=== PATIENT | male | born 1995 | race Caucasian/White ===

== ENCOUNTER 2018-07-18 08:44 | Emergency (ER) | payer OTHER, SELFPAY ==
[2018-07-18 08:48] VITALS: BP 139/78; PULSE 72; RESP 15; TEMP 36.8; O2SAT 99
--- NOTE | 2018-07-18 09:03 | W.ED.GENAD ---
Discharge Plan Disposition Patient Disposition: HOME Condition: Stable Discharge Details Chief Complaint: EarProblem Clinical Impression: Otitis media of right ear Primary Care Provider: Zandra Brandt ED Provider: Jaci Matias Home Meds and New Rx's Prescriptions: New amoxicillin 500 mg tablet 500 mg PO TID 10 Days Qty: 30 RF: 0 Continued sertraline 50 mg tablet 50 mg PO DAILY Qty: 45 RF: 0 trazodone 50 mg tablet See Patient Comments PO QHS PRNRF: 0 melatonin 3 mg tablet 6 mg PO HS PRNRF: 0 Discharge Instructions Instructions: Otitis Media (ED) Additional Instructions: Drink plenty fluids and get plenty of rest. Alternate Tylenol and Motrin as needed and directed for pain. Take the antibiotics until finished. Follow-up with your primary care doctor in 1 week for reevaluation. Return immediately to the emergency department with any worsening or new concerning symptoms. Discharge Data Discharge Physician: Jaci Matias Medical Decision Making 22-year-old male who presents with right ear pain and sore throat since 4 AM this morning. Sore throat now improving, mainly complaining of right-sided ear pain. Vitals within normal limits. Afebrile. Patient appears nontoxic. His right TM is erythematous, dull with serous fluid noted within canal. Oropharynx normal to inspection. No lymphadenopathy. No submandibular swelling, no trismus, no drooling. Lungs clear to auscultation. Rapid strep negative. Discussed with patient that this may be viral, and to alternate Tylenol and Motrin as needed and directed for pain. We will also send home with a prescription for antibiotics to start if he has no improvement with Tylenol Motrin over the next 1-2 days. Patient states he would rather start the antibiotics today. He is instructed to follow-up with primary care doctor for reevaluation within the next few days and return here at any time if worse. HPI General Mode of arrival: ambulatory. Date/Time Provider Initiated Documentation: 07/18/18 08:50. Limitations to Documentation: no limitations. Information obtained by: patient. HPI Narrative: Patient is a 22-year-old male who presents the ED with complaint of right ear pain that awoke him from sleep since 4 AM this morning. Patient also said he had some mild sore throat at that time, but states the sore throat is better and now he mainly is only complaining of ear pain. He admits to some body aches and fatigue last night but states this is improved at present. He admits to mild right-sided headache near area of ear pain. He last took Tylenol at 730 this morning. He denies any known fever cough. Related Data Home Medications Medication Instructions Recorded Confirmed melatonin 3 mg tablet 6 mg PO HS PRN tab 06/09/18 06/10/18 trazodone 50 mg tablet See Rx Instructions PO QHS PRN tab 06/09/18 06/10/18 sertraline 50 mg tablet 50 mg PO DAILY #45 tab-cap 06/10/18 06/10/18 amoxicillin 500 mg PO TID 10 Days #30 tab 07/18/18 Previous Rx's Medication Instructions Recorded sertraline 50 mg tablet 50 mg PO DAILY #45 tab-cap 06/10/18 amoxicillin 500 mg PO TID 10 Days #30 tab 07/18/18 Allergies Allergy/AdvReac Type Severity Reaction Status Date / Time No Known Drug Allergies Allergy Unverified 06/10/18 09:23 venlafaxine AdvReac Severe Suicidal Verified 06/10/18 10:11 ideation General Stated Complaint: EarProblem MOJGAN: 4 Review of Systems Review of Systems All systems reviewed & are unremarkable except as noted in HPI and below Constitutional Reports as per HPI, Denies chills and Denies fever(s) Eyes Denies blurry vision ENT Denies dizziness, Reports otalgia, Reports sore throat and Denies throat swelling Cardiovascular Denies chest pain and Denies dyspnea Respiratory Denies cough and Denies dyspnea Gastrointestinal Denies abdominal pain, Denies diarrhea and Denies vomiting Genitourinary Denies hematuria and Denies dysuria Musculoskeletal Denies back pain and Denies numbness Integumentary/Breasts Denies lesions and Denies rash Neurologic Denies dizziness, Denies focal weakness and Denies numbness Allergic/Immunologic Denies throat swelling [facility] Medical History Alcohol use disorder (Chronic) Anxiety disorder (Chronic 07/30/12) Recurrent major depression (Chronic 07/30/12) Tobacco use disorder (Chronic 09/08/16) Surgical History History of surgery on wrist (Acute) Social History Smoking/Tobacco Use Status: Current every day Tobacco Type: cigarettes Alcohol Intake: former Drug use: Never Substance use type: does not use Household members: significant other and children Number of Children: 1 current occupation: Cook Pets and animals: Yes Pets and animals: dog(s) Sexually active: Yes Current gender identity: male Seatbelt use: always Helmet use: Yes 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 Do you feel safe at home: Yes Do you feel safe in your relationship?: Yes Exam Const General: cooperative and healthy appearing Orientation: alert and awake HENMT Head: normal to inspection Ears: hearing grossly normal bilaterally, external ears normal and TM abnormal wth effusion serous on the right and erythematous on the right General nose exam: external nose normal Face and sinus: normal facial exam and sinuses nontender Mouth: oral mucosae normal Teeth and gingiva: dentition normal Throat: posterior oropharynx normal, uvula midline and no peritonsillar masses Eyes General: appearance normal, both eyes and all related structures Eyelids: eyelids normal EOM: EOM intact bilaterally Neck Neck: normal visual inspection Lymphatic: no lymphadenopathy noted Chest Chest: normal inspection of the chest Resp Effort & Inspection: normal respiratory effort and able to speak in complete sentences Auscultation: clear to auscultation bilaterally Cardio Rate: regular rate Rhythm: regular rhythm Skin General skin exam: no rashes or lesions noted Neuro General: alert and awake Cognition: normal cognition Speech: speech normal Gait: normal gait Motor: muscle tone normal throughout Sensory Exam: no sensory deficits noted Extrem General: normal to inspection and full ROM Psych Appearance: grossly normal Mental Status: mental status grossly normal Speech and Movement: speech and movement normal Affect: normal affect Thought Process: normal Course Vital Signs Temperature 98.2 F 07/18/18 08:48 Pulse 72 07/18/18 08:48 Respiratory Rate 15 07/18/18 08:48 Blood Pressure 139/78 07/18/18 08:48 Pulse Oximetry 99 07/18/18 08:48 Temperature 98.2 F 07/18/18 08:48 Temperature Source Temporal Artery Scan 07/18/18 08:48 Pulse 72 07/18/18 08:48 Respiratory Rate 15 07/18/18 08:48 Respiratory Effort Non-Labored 07/18/18 08:52 Blood Pressure 139/78 07/18/18 08:48 Blood Pressure Position Sitting 07/18/18 08:48 Pulse Oximetry 99 07/18/18 08:48 Oxygen Delivery Method Room Air 07/18/18 08:48 Oxygen Flow Rate 0 07/18/18 08:48 Pain Level 8 07/18/18 08:58 Lab/Test Results Lab/Test Results: POC Strep Test-CAIT(Rapid) Start: 07/18/18 08:57 Freq: .Rapid Strep Test Status: Active Protocol: Document 07/18/18 09:03 SGL (Rec: 07/18/18 09:03 [facility] [id number] Strep test-CAIT(Rapid)-POC POC-Strep test-CAIT (Rapid) Negative POC-Strep test-CAIT (Rapid) Negative
--- NOTE | 2018-07-18 09:08 | ED.GENADUL_ITS ---
Discharge Plan Disposition Patient Disposition: HOME Condition: Stable Discharge Details Chief Complaint: EarProblem Clinical Impression: Otitis media of right ear Primary Care Provider: Zandra Brandt ED Provider: Jaci Matias Home Meds and New Rx's Prescriptions: New amoxicillin 500 mg tablet 500 mg PO TID 10 Days Qty: 30 RF: 0 Continued sertraline 50 mg tablet 50 mg PO DAILY Qty: 45 RF: 0 trazodone 50 mg tablet See Patient Comments PO QHS PRNRF: 0 melatonin 3 mg tablet 6 mg PO HS PRNRF: 0 Discharge Instructions Instructions: Otitis Media (ED) Additional Instructions: Drink plenty fluids and get plenty of rest. Alternate Tylenol and Motrin as needed and directed for pain. Take the antibiotics until finished. Follow-up with your primary care doctor in 1 week for reevaluation. Return immediately to the emergency department with any worsening or new concerning symptoms. Discharge Data Discharge Physician: Jaci Matias Medical Decision Making 22-year-old male who presents with right ear pain and sore throat since 4 AM this morning. Sore throat now improving, mainly complaining of right-sided ear pain. Vitals within normal limits. Afebrile. Patient appears nontoxic. His right TM is erythematous, dull with serous fluid noted within canal. Oropharynx normal to inspection. No lymphadenopathy. No submandibular swelling, no trismus, no drooling. Lungs clear to auscultation. Rapid strep negative. Discussed with patient that this may be viral, and to alternate Tylenol and Motrin as needed and directed for pain. We will also send home with a prescription for antibiotics to start if he has no improvement with Tylenol Motrin over the next 1-2 days. Patient states he would rather start the antibiotics today. He is instructed to follow-up with primary care doctor for reevaluation within the next few days and return here at any time if worse. HPI General Mode of arrival: ambulatory . Date/Time Provider Initiated Documentation: 07/18/18 08:50 . Limitations to Documentation: no limitations . Information obtained by: patient . HPI Narrative: Patient is a 22-year-old male who presents the ED with complaint of right ear pain that awoke him from sleep since 4 AM this morning. Patient also said he had some mild sore throat at that time, but states the sore throat is better and now he mainly is only complaining of ear pain. He admits to some body aches and fatigue last night but states this is improved at present. He admits to mild right-sided headache near area of ear pain. He last took Tylenol at 730 this morning. He denies any known fever cough. Related Data Home Medications Medication Instructions Recorded Confirmed melatonin 3 mg tablet 6 mg PO HS PRN tab 06/09/18 06/10/18 trazodone 50 mg tablet See Rx Instructions PO QHS PRN tab 06/09/18 06/10/18 sertraline 50 mg tablet 50 mg PO DAILY #45 tab-cap 06/10/18 06/10/18 amoxicillin 500 mg PO TID 10 Days #30 tab 07/18/18 Previous Rx's Medication Instructions Recorded sertraline 50 mg tablet 50 mg PO DAILY #45 tab-cap 06/10/18 amoxicillin 500 mg PO TID 10 Days #30 tab 07/18/18 Allergies Allergy/AdvReac Type Severity Reaction Status Date / Time No Known Drug Allergies Allergy Unverified 06/10/18 09:23 venlafaxine AdvReac Severe Suicidal Verified 06/10/18 10:11 ideation General Stated Complaint: EarProblem MOJGAN: 4 Review of Systems Review of Systems All systems reviewed & are unremarkable except as noted in HPI and below Constitutional Reports as per HPI, Denies chills and Denies fever(s) Eyes Denies blurry vision ENT Denies dizziness, Reports otalgia, Reports sore throat and Denies throat swelling Cardiovascular Denies chest pain and Denies dyspnea Respiratory Denies cough and Denies dyspnea Gastrointestinal Denies abdominal pain, Denies diarrhea and Denies vomiting Genitourinary Denies hematuria and Denies dysuria Musculoskeletal Denies back pain and Denies numbness Integumentary/Breasts Denies lesions and Denies rash Neurologic Denies dizziness, Denies focal weakness and Denies numbness Allergic/Immunologic Denies throat swelling [facility] Medical History Alcohol use disorder (Chronic) Anxiety disorder (Chronic 07/30/12) Recurrent major depression (Chronic 07/30/12) Tobacco use disorder (Chronic 09/08/16) Surgical History History of surgery on wrist (Acute) Social History Smoking/Tobacco Use Status: Current every day Tobacco Type: cigarettes Alcohol Intake: former Drug use: Never Substance use type: does not use Household members: significant other and children Number of Children: 1 current occupation: Cook Pets and animals: Yes Pets and animals: dog(s) Sexually active: Yes Current gender identity: male Seatbelt use: always Helmet use: Yes 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 Do you feel safe at home: Yes Do you feel safe in your relationship?: Yes Exam Const General: cooperative and healthy appearing Orientation: alert and awake HENMT Head: normal to inspection Ears: hearing grossly normal bilaterally, external ears normal and TM abnormal wth effusion serous on the right and erythematous on the right General nose exam: external nose normal Face and sinus: normal facial exam and sinuses nontender Mouth: oral mucosae normal Teeth and gingiva: dentition normal Throat: posterior oropharynx normal, uvula midline and no peritonsillar masses Eyes General: appearance normal, both eyes and all related structures Eyelids: eyelids normal EOM: EOM intact bilaterally Neck Neck: normal visual inspection Lymphatic: no lymphadenopathy noted Chest Chest: normal inspection of the chest Resp Effort & Inspection: normal respiratory effort and able to speak in complete sentences Auscultation: clear to auscultation bilaterally Cardio Rate: regular rate Rhythm: regular rhythm Skin General skin exam: no rashes or lesions noted Neuro General: alert and awake Cognition: normal cognition Speech: speech normal Gait: normal gait Motor: muscle tone normal throughout Sensory Exam: no sensory deficits noted Extrem General: normal to inspection and full ROM Psych Appearance: grossly normal Mental Status: mental status grossly normal Speech and Movement: speech and movement normal Affect: normal affect Thought Process: normal Course Vital Signs Temperature 98.2 F 07/18/18 08:48 Pulse 72 07/18/18 08:48 Respiratory Rate 15 07/18/18 08:48 Blood Pressure 139/78 07/18/18 08:48 Pulse Oximetry 99 07/18/18 08:48 Temperature 98.2 F 07/18/18 08:48 Temperature Source Temporal Artery Scan 07/18/18 08:48 Pulse 72 07/18/18 08:48 Respiratory Rate 15 07/18/18 08:48 Respiratory Effort Non-Labored 07/18/18 08:52 Blood Pressure 139/78 07/18/18 08:48 Blood Pressure Position Sitting 07/18/18 08:48 Pulse Oximetry 99 07/18/18 08:48 Oxygen Delivery Method Room Air 07/18/18 08:48 Oxygen Flow Rate 0 07/18/18 08:48 Pain Level 8 07/18/18 08:58 Lab/Test Results Lab/Test Results: POC Strep Test-CAIT(Rapid) Start: 07/18/18 08:57 Freq: .Rapid Strep Test Status: Active Protocol: Document 07/18/18 09:03 SGL (Rec: 07/18/18 09:03 [facility] [place] [id number]) Strep test-CAIT(Rapid)-POC POC-Strep test-CAIT (Rapid) Negative POC-Strep test-CAIT (Rapid) Negative
== END 2018-07-18 09:16 | disposition home or self-care (01) ==
PROVIDERS: Emergency Provider Physician Assistant; PCP Family Medicine
DX: H66.91 Otitis media, unspecified, right ear (principal)
CPT/HCPCS: 87880; 99283; 87081

== ENCOUNTER 2018-08-30 08:52 | Emergency (ER) | payer OTHER, SELFPAY ==
--- NOTE | 2018-08-30 08:58 | NUR.NOTE ---
Thursday night the PT fell off his longboard wile riding in the dark. in the process pt rolled/landed on his right ankle pt has kyle able to ambulate on it and has been experiencing 4/10 pain. pt is current that it is broken minimal spelling
[2018-08-30 09:00] VITALS: BP 151/82; PULSE 70; RESP 16; TEMP 36.6; O2SAT 99
--- NOTE | 2018-08-30 09:32 | DI.RAD_ITS ---
SYMPTOM/DIAGNOSIS: S/P TWISTING INJURY, PAIN, ? ACUTE FX RIGHT ANKLE AND RIGHT FOOT: Three views of the ankle and three views of the foot were obtained. The ankle mortise appears well maintained. No evidence of fracture involving the foot or ankle.
--- NOTE | 2018-08-30 09:45 | W.ED.GENAD ---
Discharge Plan Disposition Patient Disposition: HOME Condition: Good Discharge Details Chief Complaint: Orthopedic Clinical Impression: Right foot sprain Primary Care Provider: Zandra Brandt ED Provider: Ricardo Fisher Meds and New Rx's Prescriptions: Continued hydroxyzine HCl 25 mg tablet 25 - 50 mg PO QID PRN (Reason: anxiety) Qty: 60 RF: 0 Discharge Instructions Instructions: Foot Sprain (ED) Additional Instructions: X-rays do not show any fracture. Please use ice on and off for pain and swelling. May take acetaminophen or ibuprofen for pain. Follow-up with primary care in 1 to 2 weeks if not better. Return to ED if any problems. Referrals: Zandra Brandt, GRETA [Primary Care Provider] - Medical Decision Making X-rays of the right ankle and foot were obtained from triage. Per my review and radiology read these are negative for fracture. Patient does not want crutches or anything. He just wanted to make sure there was no fracture. He is discharged home follow-up with primary care in 1 to 2 weeks if not better. HPI General Mode of arrival: ambulatory. Date/Time Provider Initiated Documentation: 08/30/18 09:17. Limitations to Documentation: no limitations. Information obtained by: patient. HPI Narrative: Patient presents with right foot and ankle pain after falling Thursday. He has had trouble ambulating. Most of his pain is right foot laterally. Denies other injury. Here just to make sure he did not break anything. Related Data Home Medications Medication Instructions Recorded Confirmed hydroxyzine HCl 25 mg tablet 25 - 50 mg PO QID PRN #60 tab-cap 08/20/18 08/30/18 Previous Rx's Medication Instructions Recorded hydroxyzine HCl 25 mg tablet 25 - 50 mg PO QID PRN #60 tab-cap 08/20/18 Allergies Allergy/AdvReac Type Severity Reaction Status Date / Time venlafaxine AdvReac Severe Suicidal Verified 08/30/18 09:02 ideation General Stated Complaint: Orthopedic MOJGAN: 4 Review of Systems Musculoskeletal Denies back pain and Denies numbness Comments: Foot pain Integumentary/Breasts Denies wounds Neurologic Denies numbness and Denies paresthesias [facility] [place] Medical History Alcohol use disorder (Chronic) Anxiety disorder (Chronic 07/30/12) Recurrent major depression (Chronic 07/30/12) Tobacco use disorder (Chronic 09/08/16) Surgical History History of surgery on wrist (Acute) Social History Smoking/Tobacco Use Status: Current every day Tobacco Type: cigarettes Alcohol Intake: current Alcohol Intake frequency: a few times a month Drug use: Never Substance use type: does not use Caregiver/Support person: No Household members: significant other and children Number of Children: 1 Communication Needs: None current occupation: Cook Pets and animals: Yes Pets and animals: dog(s) Sexually active: Yes Current gender identity: male Seatbelt use: always Helmet use: Yes 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 Normal range of motion. Right foot with bruising and tenderness dorsally over fourth and fifth metatarsal region. Good pulses, sensation, movement. Course Vital Signs Temperature 97.9 F 08/30/18 09:00 Pulse 70 08/30/18 09:00 Respiratory Rate 16 08/30/18 09:00 Blood Pressure 151/82 H 08/30/18 09:00 Pulse Oximetry 99 08/30/18 09:00 Temperature 97.9 F 08/30/18 09:00 Temperature Source Skin 08/30/18 09:00 Pulse 70 08/30/18 09:00 Respiratory Rate 16 08/30/18 09:00 Respiratory Effort 08/30/18 09:02 Blood Pressure 151/82 H 08/30/18 09:00 Blood Pressure Position Sitting 08/30/18 09:00 Pulse Oximetry 99 08/30/18 09:00 Oxygen Delivery Method Room Air 08/30/18 09:00 Oxygen Flow Rate 0 08/30/18 09:00 Pain Level 4 08/30/18 09:00
[2018-08-30 10:06] VITALS: BP 151/82; PULSE 70; RESP 16; TEMP 36.6; O2SAT 99
== END 2018-08-30 10:39 | disposition home or self-care (01) ==
PROVIDERS: Emergency Provider Emergency Medicine; PCP Nurse Practitioner Family
DX: S93.401A Sprain of unspecified ligament of right ankle, initial encounter (principal); W01.0XXA Fall on same level from slipping, tripping and stumbling without subsequent striking against object, initial encounter
CPT/HCPCS: 99284; 73610; 73630; 99282

== ENCOUNTER 2019-11-15 11:48 | Outpatient (REF) | payer MEDICAID, SELFPAY ==
[2019-11-15 19:24] LABS: HGB 16.4 g/dL (13.5-17.5); Mean Corp. HGB Concentration 32.8 g/dL (32.0-36.0); Mean Corpuscular Hemoglobin 29.2 pg (27.0-33.0); Mean Corpuscular Volume 89.1 fL (80-95); Platelet Count 339 x1000/uL (130-400); RBC 5.61 m/cumm (4.50-6.00); White Blood Cell Count 6.93 k/cumm (4.4-10.8)
[2019-11-15 19:45] LABS: ALT 42 U/L (16-63); AST 28 U/L (15-37); Albumin 4.4 g/dL (3.4-5.0); Alkaline Phosphatase 111 U/L (46-116); Anion Gap 6.7 mmol/L (3-11); BUN 11 mg/dL (7-18); Bilirubin, Total 1.1 mg/dL (0.2-1.0); CO2 29.3 mmol/L (21.0-32.0); CREATININE 0.96 mg/dL (0.70-1.30); Calcium 9.9 mg/dL (8.5-10.1); Chloride 102 mmol/L (98-107); Glucose 103 mg/dL (74-106); Potassium 4.6 mmol/L (3.5-5.1); Sodium 138 mmol/L (136-145); TSH (W/Ref FT4) 1.07 uIU/mL (0.36-3.74); Total Protein 7.7 g/dL (6.4-8.2)
[2019-11-17 13:19] LABS: Hepatitis C Ab w Rflx HCV PCR Negative (Negative)
[2019-11-17 14:15] LABS: HIV-1/2 Ag & Ab Screen Negative (Negative)
== END 2019-11-15 12:08 ==
LOC: NCHCN 11:48
PROVIDERS: Visit Provider Family Medicine
DX: Z13.9 Encounter for screening, unspecified (principal); F10.20 Alcohol dependence, uncomplicated; F41.1 Generalized anxiety disorder
CPT/HCPCS: 80053; 85027; 86803; 87389; 84443

== ENCOUNTER 2021-06-19 16:30 | Outpatient (REF) | payer MEDICAID, SELFPAY ==
[2021-06-19 19:19] LABS: HCT 45.9 % (40.0-50.0); HGB 14.7 g/dL (13.5-17.5); MCH 29.4 pg (27.0-33.0); MCV 91.8 fL (80-95); MPV 10.4 fL (8.0-11.0); Platelet Count 334 10^3/uL (130-400); RDW 13.4 % (11.8-14.1); RDW-SD 45.5 fL; WBC 6.06 10^3/uL (4.4-10.8)
[2021-06-19 20:21] LABS: ALT 34 U/L (16-63); AST 22 U/L (15-37); Albumin 4.4 g/dL (3.4-5.0); Alkaline Phosphatase 98 U/L (46-116); Anion Gap 7.9 mmol/L (3-11); BUN 15 mg/dL (7-18); Bilirubin, Total 0.7 mg/dL (0.2-1.0); CO2 28.1 mmol/L (21.0-32.0); CREATININE 0.9 mg/dL (0.70-1.30); Calcium 9.1 mg/dL (8.5-10.1); Chloride 102 mmol/L (98-107); Folate 10.7 ng/mL (8.6-20.0); Glucose 76 mg/dL (74-106); Potassium 4.4 mmol/L (3.5-5.1); Sodium 138 mmol/L (136-145); Total Protein 7.5 g/dL (6.4-8.2); Vitamin B12 399 pg/mL (193-986)
== END 2021-06-19 16:31 | disposition home or self-care (01) ==
LOC: NCHCN 16:30
PROVIDERS: Visit Provider Family Medicine
DX: F10.20 Alcohol dependence, uncomplicated (principal)
CPT/HCPCS: 80053; 85027; 82607; 82746

== ENCOUNTER 2021-07-11 17:25 | Outpatient (REF) | payer MEDICAID, SELFPAY ==
[2021-07-13 11:54] LABS: COVID-19 RT-PCR UVMMC Result Negative (Negative)
== END 2021-07-11 17:26 | disposition home or self-care (01) ==
LOC: LBN 17:25
PROVIDERS: Visit Provider Physician Assistant Medical
DX: Z20.822 Contact with and (suspected) exposure to COVID-19 (principal); J06.9 Acute upper respiratory infection, unspecified
CPT/HCPCS: U0003

== ENCOUNTER 2022-06-29 13:09 | Emergency (ER) | payer MEDICAID, SELFPAY ==
[2022-06-29 13:13] VITALS: BP 141/77; PULSE 80; RESP 18; TEMP 36.6; O2SAT 98
[2022-06-29 13:53] LABS: Abs Immature Grans 0.05 10^3/uL (0.0-0.06); Absolute Basophil Count 0.05 10^3/uL (0.0-0.2); Absolute Eosinophil Count 0.24 10^3/uL (0.0-0.7); Absolute Lymphocyte Count 0.81 10^3/uL (1.2-3.4); Absolute Monocyte Count 0.69 10^3/uL (0.1-0.8); Absolute Neutrophil Count 5.53 10^3/uL (1.2-6.7); Basophils % 0.7; Eosinophils % 3.3; HCT 45.2 % (40.0-50.0); HGB 14.8 g/dL (13.5-17.5); Immature Grans % 0.7; MCH 28.5 pg (27.0-33.0); MCHC 32.7 % (32.0-36.0); MCV 87 fL (80-95); MPV 10.5 fL (8.0-11.0); Monocytes % 9.4; Neutrophils % 74.9; Platelet Count 263 10^3/uL (130-400); RDW-SD 44.9 fL; WBC 7.37 10^3/uL (4.4-10.8)
[2022-06-29] MEDS: Normal Saline 1,000 ML 1000 ML IV (13:58)
[2022-06-29] MEDS: Ketorolac 30 MG/ML VIAL IVP (13:59)
[2022-06-29 14:07] LABS: Bilirubin Negative (Negative); Blood Trace-intact (Negative); Clarity Clear (Clear); Glucose Negative (Negative); Ketones Negative (Negative); Leukocyte Esterase Negative (Negative); Nitrite Negative (Negative); Specific Gravity >= 1.030 (1.005-1.025); Urobilinogen 0.2 mg/dL (Up to 0.2)
[2022-06-29 14:08] LABS: ALT 32 U/L (16-63); AST 24 U/L (15-37); Albumin 4.6 g/dL (3.4-5.0); Alkaline Phosphatase 134 U/L (46-116); Anion Gap 8.8 mmol/L (3-11); BUN 19 mg/dL (7-18); Bilirubin, Total 0.5 mg/dL (0.2-1.0); CO2 28.2 mmol/L (21.0-32.0); CREATININE 0.9 mg/dL (0.70-1.30); Calcium 9.4 mg/dL (8.5-10.1); Chloride 105 mmol/L (98-107); Estimated GFR 119.31 (mL/min/1.73m2); Glucose 85 mg/dL (74-106); Magnesium 1.7 mg/dL (1.8-2.4); Potassium 4.4 mmol/L (3.5-5.1); Sodium 142 mmol/L (136-145); Total Protein 7.8 g/dL (6.4-8.2)
[2022-06-29 14:14] LABS: Bacteria Negative HPF (Negative); Epithelial Cells Rare HPF (Negative); RBC 0-2 HPF (0-2); WBC 0-2 HPF (0-5)
[2022-06-29 14:15] LABS: C & S Indicated? No; Casts Negative LPF (Negative); Crystals Rare Calcium Oxalate HPF (Negative); Mucus Negative (Negative)
[2022-06-29 14:56] LABS: C Diff PCR Negative (Negative)
--- NOTE | 2022-06-29 15:16 | ED.GENADUL_ITS ---
Discharge Plan Disposition Patient Disposition: Home Condition: Stable Discharge Details Clinical Impression: Acute diarrhea Primary Care Provider: Sang Gonzalez ED Provider: Brennon Salter Home Meds and New Rx's Prescriptions: Continued hydroxyzine HCl 25 mg tablet 25 - 50 mg PO QID PRN (Reason: anxiety) Qty: 60 0RF sertraline 100 mg tablet 100 mg PO DAILY Discontinued azithromycin 500 mg tablet 1,000 mg PO ONCE Qty: 2 0RF Discharge Instructions Instructions: Acute Diarrhea (ED) Additional Instructions: We will call you with any positive results at this time I do feel you can be safely discharged to follow-up with your primary care provider if not improving in the next 5 days. You may use [id number] Imodium as directed on packaging please only take as directed as there may be adverse effects to this medications if taken outside of directions. If you develop any new or significant worsening of symptoms such as severe fever, blood in your diarrhea, mucus, or worsening belly pain return to the emergency department for reassessment Also on today's labs it was noted that your magnesium was slightly low. We did not give you any magnesium given that this can cause worsening diarrhea but please eat magnesium rich foods as tolerated. Stand Alone Forms: Work Release Referrals: Sang Gonzalez [Primary Care Provider] - 5 days (If not improving) Medical Decision Making Patient presenting to the emergency department for chief complaint of acute diarrhea. Patient states watery profuse diarrhea for the past 3 days. Patient denies any fever chills, blood or mucus, severe abdominal pain. Patient denies any recent travel outside the country, drinking un- filtered stream water, or other sick contacts within his family or home. Physical exam is unremarkable shows no abdominal tenderness but does reveal some hyperactive bowel sounds. Given profuse diarrhea we will check patient's labs for potential electrolyte abnormalities and obtain stool specimen if possible. Pending results we will give patient IV fluids Review of patient's labs show an overall unremarkable nondiagnostic CBC, CMP shows slightly elevated BUN, slightly elevated alk phos otherwise unremarkable CMP. Magnesium is slightly low at 1.7 but will have patient increase magnesium rich foods given that I feel oral magnesium will just further cause more diarrhea. Urinalysis does show high specific gravity and trace blood otherwise no signs of infection. We were able to obtain stool specimen and patient is negative for C. difficile although the stool results are send out and are pending. Patient reassessed and stated slight continued headache after fluids so we will give some IV Toradol. Otherwise I do feel that patient is able to be safely discharged to follow-up with primary care provider if not improving or return for any significant worsening of symptoms. At this time given watery nature with no mucus no fever no chills I do not feel that patient requires antibiotics. Did discussed with him use of [id number] Imodium and to take only as directed on packaging. He was agreeable to this and stated understanding of discharge instructions. After discussion of diagnosis and plan of care patient has no further needs, questions, or concerns and states clear understanding to return to the emergency department for any worsening symptoms. This documentation was generated using [employer] dictation system, please disregard any oddities of phrase or misspellings. Lab Data Lab results reviewed: Yes I reviewed the patient's lab results. HPI General Mode of arrival: ambulatory . Date/Time Provider Initiated Documentation: 06/29/22 13:17 . Limitations to Documentation: no limitations . Information obtained by: RN notes reviewed . History of Present Illness 26 year old M presents to the emergency department with the chief complaint of Diarrhea, described as mild, with intensity rated at 1. Quality is described as aching, and is localized to the abdomen. Patient started experiencing this day(s) (3) and it has been constant. No relieving factors improve symptom(s), No exacerbating factors reported . Patient notes no other symptoms.. Patient did receive the following treatments prior to arrival, other (Pepto-Bismol) Related Data Home Medications Medication Instructions Recorded Confirmed hydroxyzine HCl 25 mg tablet 25 - 50 mg PO QID PRN anxiety #60 08/20/18 06/29/22 tab-caps sertraline 100 mg tablet 100 mg PO DAILY 06/29/22 06/29/22 Previous Rx's Medication Instructions Recorded hydroxyzine HCl 25 mg tablet 25 - 50 mg PO QID PRN anxiety #60 08/20/18 tab-caps Allergies Allergy/AdvReac Type Severity Reaction Status Date / Time venlafaxine AdvReac Severe Suicidal Verified 06/29/22 13:17 ideation General Stated Complaint: Nausea/Vomit/Diar MOJGAN: 3 Review of Systems Constitutional Constitutional: Denies chills, Denies fever(s), Reports headache(s), Denies malaise and Denies poor appetite ENT Ears, Nose, Mouth, and Throat: Reports headache(s) Cardiovascular Cardiovascular: Denies chest pain and Denies dyspnea Respiratory Respiratory: Denies cough and Denies dyspnea Gastrointestinal Gastrointestinal: Reports as per HPI, Reports abdominal pain, Denies melena, Denies change in bowel habits, Denies constipation, Reports diarrhea, Denies nausea and Denies vomiting Genitourinary Genitourinary: Reports system reviewed and no additional complaints, except as documented and Denies difficulty urinating Integumentary/Breasts Skin/Breast: Denies rash Neurologic Neurologic: Reports headache(s) PFSH All Active Problems Acute diarrhea (Acute) Alcohol use disorder (Chronic) [facility] 05/17-06/06/2018 Anxiety disorder (Chronic 07/30/12) With panic attacks; citalopram and bupropion made things worse; venlafaxine caused suicidal ideation Recurrent major depression (Chronic 07/30/12) Tobacco use disorder (Chronic 09/08/16) Surgical History History of surgery on wrist Family History Mother No problems noted. Father Alcohol abuse Sister No problems noted. Brother No problems noted. Brother No problems noted. 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 Do you feel safe at home: Yes Do you feel safe in your relationship?: Yes Exam Const General: cooperative Orientation: alert, awake and oriented x3 Resp Effort & Inspection: normal respiratory effort and able to speak in complete sentences Auscultation: clear to auscultation bilaterally Cardio Rate: regular rate Rhythm: regular rhythm Heart Sounds: S1 normal and S2 normal GI Palpation: soft, no hepatosplenomegaly, not firm, no guarding, no masses, no pulsatile masses, not rigid, no splenomegaly and nontender Auscultation: normal bowel sounds and hyperactive bowel sounds Back/Spine/Pelvis Back: no CVA tenderness Neuro General: patient alert, patient awake, patient oriented x3, gait normal and moves all extremities Course Vital Signs Vital signs: Vital Signs Temperature 36.6 C 06/29/22 13:13 Pulse 80 06/29/22 13:13 Respiratory Rate 18 06/29/22 13:13 Blood Pressure 141/77 H 06/29/22 13:13 Pulse Oximetry 98 06/29/22 13:13 Temperature 36.6 C 06/29/22 13:13 Temperature Source Tympanic 06/29/22 13:13 Pulse 80 06/29/22 13:13 Respiratory Rate 18 06/29/22 13:13 Respiratory Effort Normal, Non-Labored 06/29/22 13:15 Blood Pressure 141/77 H 06/29/22 13:13 Pulse Oximetry 98 06/29/22 13:13 Oxygen Delivery Method Room Air 06/29/22 13:13 Oxygen Flow Rate 0 06/29/22 13:13 Lab/Test Results Lab/Test Results: Laboratory Tests Range/Units 06/29/22 06/29/22 06/29/22 13:44 13:44 13:50 WBC (4.4-10.8) 10^3/uL 7.37 RBC (4.36-5.78) 10^6/uL 5.20 Hgb (13.5-17.5) g/dL 14.8 Hct (40.0-50.0) % 45.2 MCV (80-95) fL 87 MCH (27.0-33.0) pg 28.5 MCHC (32.0-36.0) % 32.7 RDW (11.8-14.1) % 14.0 Plt Count (130-400) 10^3/uL 263 MPV (8.0-11.0) fL 10.5 Immature Gran % 0.7 Neutrophils % 74.9 Lymphocytes % 11.0 Monocytes % 9.4 Eosinophils % 3.3 Basophils % 0.7 Nucleated RBC % (0.0-0.3) % 0.0 Absolute Neutrophils (1.2-6.7) 10^3/uL 5.53 Absolute Lymphocytes (1.2-3.4) 10^3/uL 0.81 L Absolute Monocytes (0.1-0.8) 10^3/uL 0.69 Absolute Eosinophils (0.0-0.7) 10^3/uL 0.24 Absolute Basophils (0.0-0.2) 10^3/uL 0.05 Sodium (136-145) mmol/L 142 Potassium (3.5-5.1) mmol/L 4.4 Chloride (98-107) mmol/L 105 Carbon Dioxide (21.0-32.0) mmol/L 28.2 Anion Gap (3-11) mmol/L 8.8 BUN (7-18) mg/dL 19 H Creatinine (0.70-1.30) mg/dL 0.9 Est GFR (CKD-EPI 2020) (mL/min/1.73m2) 119.31 Glucose (74-106) mg/dL 85 Calcium (8.5-10.1) mg/dL 9.4 Magnesium (1.8-2.4) mg/dL 1.7 L Total Bilirubin (0.2-1.0) mg/dL 0.5 AST (15-37) U/L 24 ALT (16-63) U/L 32 Alkaline Phosphatase (46-116) U/L 134 H Total Protein (6.4-8.2) g/dL 7.8 Albumin (3.4-5.0) g/dL 4.6 Urine Color (Yellow) Yellow Urine Clarity (Clear) Clear Urine pH (5-8) 6.0 Ur Specific [place] (1.005-1.025) >= 1.030 H Urine Protein (Negative) mg/dL Negative Urine Ketones (Negative) mg/dL Negative Urine Blood (Negative) Trace-intact H Urine Nitrite (Negative) Negative Urine Bilirubin (Negative) Negative Urine Urobilinogen (Up to 0.2) mg/dL 0.2 Ur Leukocyte Esterase (Negative) Negative Urine RBC (0-2) HPF 0-2 Urine WBC (0-5) HPF 0-2 Ur Epithelial Cells (Negative) HPF Rare Urine Crystals (Negative) HPF Rare Calcium Oxalate Urine Bacteria (Negative) HPF Negative Urine Casts (Negative) LPF Negative Urine Mucus (Negative) Negative Ur Culture Indicated? No Urine Glucose (Negative) mg/dL Negative Stl C.difficile Tox PCR (Negative) Range/Units 06/29/22 13:57 WBC (4.4-10.8) 10^3/uL RBC (4.36-5.78) 10^6/uL Hgb (13.5-17.5) g/dL Hct (40.0-50.0) % MCV (80-95) fL MCH (27.0-33.0) pg MCHC (32.0-36.0) % RDW (11.8-14.1) % Plt Count (130-400) 10^3/uL MPV (8.0-11.0) fL Immature Gran % Neutrophils % Lymphocytes % Monocytes % Eosinophils % Basophils % Nucleated RBC % (0.0-0.3) % Absolute Neutrophils (1.2-6.7) 10^3/uL Absolute Lymphocytes (1.2-3.4) 10^3/uL Absolute Monocytes (0.1-0.8) 10^3/uL Absolute Eosinophils (0.0-0.7) 10^3/uL Absolute Basophils (0.0-0.2) 10^3/uL Sodium (136-145) mmol/L Potassium (3.5-5.1) mmol/L Chloride (98-107) mmol/L Carbon Dioxide (21.0-32.0) mmol/L Anion Gap (3-11) mmol/L BUN (7-18) mg/dL Creatinine (0.70-1.30) mg/dL Est GFR (CKD-EPI 2020) (mL/min/1.73m2) Glucose (74-106) mg/dL Calcium (8.5-10.1) mg/dL Magnesium (1.8-2.4) mg/dL Total Bilirubin (0.2-1.0) mg/dL AST (15-37) U/L ALT (16-63) U/L Alkaline Phosphatase (46-116) U/L Total Protein (6.4-8.2) g/dL Albumin (3.4-5.0) g/dL Urine Color (Yellow) Urine Clarity (Clear) Urine pH (5-8) Ur Specific [place] (1.005-1.025) Urine Protein (Negative) mg/dL Urine Ketones (Negative) mg/dL Urine Blood (Negative) Urine Nitrite (Negative) Urine Bilirubin (Negative) Urine Urobilinogen (Up to 0.2) mg/dL Ur Leukocyte Esterase (Negative) Urine RBC (0-2) HPF Urine WBC (0-5) HPF Ur Epithelial Cells (Negative) HPF Urine Crystals (Negative) HPF Urine Bacteria (Negative) HPF Urine Casts (Negative) LPF Urine Mucus (Negative) Ur Culture Indicated? Urine Glucose (Negative) mg/dL Stl C.difficile Tox PCR (Negative) Negative
[2022-06-29 15:26] VITALS: BP 125/78; PULSE 78; RESP 18; TEMP 37.1; O2SAT 96
[2022-06-30 22:52] LABS: Campylobacter PCR Negative (Negative); Salmonella PCR Negative (Negative); Shiga Toxin PCR Negative (Negative); Shigella/Enteroinvasive Ecoli Negative (Negative)
== END 2022-06-29 15:35 | disposition home or self-care (01) ==
PROVIDERS: Emergency Provider Nurse Practitioner Family; PCP Family Medicine
DX: R19.7 Diarrhea, unspecified (principal); E83.42 Hypomagnesemia; R51.9 Headache, unspecified; R79.89 Other specified abnormal findings of blood chemistry
CPT/HCPCS: 36415; 80053; 87329; 87493; 87505; 96361; 96374; 99284; 81003; 81015; 83735; 85025; 87177; J1885

== ENCOUNTER 2022-08-23 17:37 | Emergency (ER) | payer MEDICAID, SELFPAY ==
[2022-08-23 17:48] VITALS: BP 140/69; PULSE 63; TEMP 37.3; O2SAT 99
--- NOTE | 2022-08-23 17:55 | W.ED.GENAD ---
Discharge Plan Disposition Patient Disposition: Home Discharge Details Clinical Impression: Pain, dental Primary Care Provider: Sang Gonzalez ED Provider: Dionisio Helm Home Meds and New Rx's Prescriptions: No Action hydroxyzine HCl 25 mg tablet 25 - 50 mg PO QID PRN (Reason: anxiety) Qty: 60 0RF sertraline 100 mg tablet 100 mg PO DAILY Discharge Instructions Instructions: Toothache (ED) Additional Instructions: Please continue taking the antibiotic. Antibiotic should kick in in the next 24 hours. Please continue alternating Tylenol and Motrin. Follow-up with your dentist as planned. Medical Decision Making Ongoing dental pain. Already taking Augmentin. X2 doses. Will require more dosing for his levels to be therapeutic. Good relief with dental block. Patient be discharged continue alternating Tylenol Motrin. HPI General Date/Time Provider Initiated Documentation: 08/23/22 17:43. HPI Narrative: Right lower dental pain for a few days. He was actually seen by his dentist and prescribed Augmentin. He has taken 2 doses. He states that he has not had any relief. He is applying some ice taking Tylenol and Motrin alternatively. He has not noticed any swelling of his face. No fever no chills. No difficulty swallowing. Related Data Home Medications Medication Instructions Recorded Confirmed hydroxyzine HCl 25 mg tablet 25 - 50 mg PO QID PRN anxiety #60 08/20/18 08/23/22 tab-caps sertraline 100 mg tablet 100 mg PO DAILY 06/29/22 08/23/22 Previous Rx's Medication Instructions Recorded hydroxyzine HCl 25 mg tablet 25 - 50 mg PO QID PRN anxiety #60 08/20/18 tab-caps Allergies Allergy/AdvReac Type Severity Reaction Status Date / Time venlafaxine AdvReac Severe Suicidal Verified 08/23/22 17:52 ideation General Stated Complaint: DentalOral MOJGAN: 5 Review of Systems Narrative: Constitutional negative, ENT negative GI no nausea no vomiting hematological negative skin no rash PFSH All Active Problems (Updated 08/23/22 @ 17:59 by Dionisio Helm MD) Pain, dental (Acute) Alcohol use disorder (Chronic) [facility] 05/17-06/06/2018 Anxiety disorder (Chronic 07/30/12) With panic attacks; citalopram and bupropion made things worse; venlafaxine caused suicidal ideation Recurrent major depression (Chronic 07/30/12) Tobacco use disorder (Chronic 09/08/16) Surgical History History of surgery on wrist Family History Mother No problems noted. Father Alcohol abuse Sister No problems noted. Brother No problems noted. Brother No problems noted. 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 Several missing teeth. His right lower premolar and first molar tender to percussion. Respiratory Respiratory Effort: no dyspnea Musculoskeletal System Joints, Bones, and Muscles: no deformities Extremities: warm and well-perfused, no cyanosis, capillary refill <2 seconds Skin Skin Inspection: no rash, no lesions, no bruising Neurological Motor: normal tone, normal strength, moving all extremities equally Psychiatric: good insight, good judgement, normal mood and affect Course Vital Signs Vital signs: Vital Signs Temperature 37.3 C 08/23/22 17:48 Pulse 63 08/23/22 17:48 Blood Pressure 140/69 08/23/22 17:48 Pulse Oximetry 99 08/23/22 17:48 Temperature 37.3 C 08/23/22 17:48 Temperature Source Skin 08/23/22 17:48 Pulse 63 08/23/22 17:48 Blood Pressure 140/69 08/23/22 17:48 Blood Pressure Position Sitting 08/23/22 17:48 Pulse Oximetry 99 08/23/22 17:48 Oxygen Delivery Method Room Air 08/23/22 17:48 Oxygen Flow Rate 0 08/23/22 17:48 Pain Level 10 08/23/22 17:48 Comment tylenol and ibuprofen without relief 08/23/22 17:48 Procedures Other Description: Dental block. An alveolar block was done on the right lower. At the level of the first molar and premolar. A total of 2ml of Marcaine 0.5% were used. Well-tolerated. Positive relief
== END 2022-08-23 18:15 | disposition home or self-care (01) ==
PROVIDERS: Emergency Provider Emergency Medicine; PCP Family Medicine
DX: K08.89 Other specified disorders of teeth and supporting structures (principal)
CPT/HCPCS: 99281; 99282

== ENCOUNTER 2024-07-15 13:30 | Outpatient (CLI) | payer MEDICAID, SELFPAY ==
[2024-07-15 13:02] LABS: ALT 51 U/L (16-63); AST 21 U/L (15-37); Albumin 4.4 g/dL (3.4-5.0); Alkaline Phosphatase 107 U/L (46-116); BUN 13 mg/dL (7-18); Bilirubin, Total 0.7 mg/dL (0.2-1.0); CREATININE 1.2 mg/dL (0.70-1.30); Calcium 9.3 mg/dL (8.5-10.1); Chloride 106 mmol/L (98-107); Estimated GFR 83.43 (mL/min/1.73m2); Glucose 100 mg/dL (74-106); Potassium 4.3 mmol/L (3.5-5.1); Sodium 142 mmol/L (136-145); Total Protein 7.5 g/dL (6.4-8.2)
== END 2024-07-15 13:31 | disposition home or self-care (01) ==
LOC: LBO 13:32
PROVIDERS: PCP Nurse Practitioner Family; Visit Provider Nurse Practitioner Family
DX: R79.9 Abnormal finding of blood chemistry, unspecified (principal)
CPT/HCPCS: 36415; 80053

== ENCOUNTER 2024-07-28 11:40 | Emergency (ER) | payer MEDICAID, SELFPAY ==
[2024-07-28] VITALS (14 sets, daily range): BP systolic 142–164; BP diastolic 90–106; PULSE 69–85; RESP 20; TEMP 36.9; O2SAT 98–100
--- NOTE | 2024-07-28 12:00 | DI.CT_ITS ---
Exam(s) CT ABDOMEN PELVIS W EXAM: CT ABDOMEN PELVIS W CLINICAL HISTORY: LUQ pain, hx ETOH, possible pancreatitis TECHNIQUE: Imaging Protocol: Axial computed tomography images with coronal and sagittal reformatted images were created and reviewed. CONTRAST MATERIAL: Intravenous: Omnipaque 350 Contrast volume:100 mL Oral: No COMPARISON: No exams were available for comparison FINDINGS: ABDOMEN: Lung Bases: No acute abnormality. Liver: Normal density. No measurable mass. Portal, Superior Mesenteric, and Splenic Veins: Unremarkable. Gallbladder and Biliary Tract: No radiodense calculus or dilation. Pancreas: Normal density, no abnormal calcifications or inflammatory process. Spleen: Normal. Adrenals: No masses seen. Kidneys: Normal size, contour and axis. No radiodense stones or obstructive uropathy. No masses seen. Abdominal Aorta: Abdominal portion non-dilated. Bowel: No obstruction or bowel wall thickening. Appendix is unremarkable. Peritoneal Cavity: No ascites, collection or mesenteric inflammatory response. No free air. Lymph Nodes: Within normal limits. Bones: Within normal limits for the patient's age. Soft Tissues: Unremarkable. PELVIS: Bladder: Symmetric distention, no gross wall thickening. Reproductive Organs: Unremarkable as visualized. Lymph Nodes: Within normal limits. Bones: Within normal limits for the patient's age. IMPRESSION: 1. No acute abdominal or pelvic process. 2. No evidence of cholelithiasis or biliary ductal dilatation. 3. Unremarkable appearance of the pancreas on the CT examination. RADIATION DOSE DELIVERED: 851.47mGy.cm Total DLP DATA REPOSITORY: All CT scans at this facility are submitted to the National Radiology Data Registry (NRDR) Dose Index Registry (DIR) with the [employer] ([employer]). RADIATION OPTIMIZATION: All CT scans at this facility use at least one of these dose optimization te chniques: automated exposure control; mA and/or kV adjustment per patient size (includes targeted exa ms where dose is matched to clinical indication); or iterative reconstruction.
--- NOTE | 2024-07-28 12:10 | W.ED.GENAD ---
Discharge Plan Disposition Patient Disposition: Home Condition: Good Discharge Details Clinical Impression: Abdominal pain, Anxiety disorder Primary Care Provider: Laxmi Oakes ED Provider: Kelsi Olsen Home Meds and New Rx's Prescriptions: New pantoprazole 40 mg tablet,delayed release (DR/EC) 40 mg PO DAILY Qty: 20 0RF Continued hydroxyzine HCl 25 mg tablet 25 - 50 mg PO QID PRN (Reason: anxiety) Qty: 60 0RF sertraline 100 mg tablet 100 mg PO DAILY lorazepam 0.5 mg tablet 0.5 mg PO DAILY PRN (Reason: anxiety) Patient Comments: TAKE ONE TABLET BY MOUTH EVERY DAY FOR ANXIETY. USE SPARINGLY Discharge Instructions Instructions: Abdominal Pain, Adult ED Additional Instructions: As we discussed, your labs and imaging are reassuring here today. I am concerned some of this may be associated with acid reflux that you had before. Please take the pantoprazole as prescribed. Please discuss at your upcoming gastroenterology appointment. Please continue to encourage hydration, you did appear slightly dehydrated here but did receive some fluids. If you develop any new or worsening symptoms please seek care urgently once again. Referrals: Laxmi Oakes [Primary Care Provider] - [facility] General Date/Time Provider Initiated Documentation: 07/28/24 11:53. Limitations to Documentation: no limitations. Information obtained by: patient and RN notes reviewed. History of Present Illness 29 year old M presents to the emergency department with the chief complaint of LUQ pain, decreased appetite, fevers, described as moderate and similar to prior episodes, and is localized to the abdomen. Patient reports no radiation. Patient started experiencing this day(s) and it has been constant (progressively worsening). No relieving factors improve symptom(s), No exacerbating factors reported . Patient notes cough, fever/chills, loss of appetite, malaise and nausea/vomiting (nausea, no vomiting); denies chest pain, diaphoresis, rash and shortness of breath. Patient did receive the following treatments prior to arrival, none Related Data Home Medications ?Medication ?Instructions ?Recorded ?Confirmed hydroxyzine HCl 25 mg tablet 25 - 50 mg (1 - 2 x 25 mg) PO QID 08/20/18 07/28/24 PRN anxiety #60 tab-caps sertraline 100 mg tablet 100 mg PO DAILY 06/29/22 07/28/24 lorazepam 0.5 mg tablet 0.5 mg PO DAILY PRN anxiety 07/28/24 07/28/24 pantoprazole 40 mg tablet,delayed 40 mg PO DAILY #20 tabs 07/28/24 release Previous Rx's ?Medication ?Instructions ?Recorded hydroxyzine HCl 25 mg tablet 25 - 50 mg (1 - 2 x 25 mg) PO QID 08/20/18 PRN anxiety #60 tab-caps pantoprazole 40 mg tablet,delayed 40 mg PO DAILY #20 tabs 07/28/24 release Allergies Allergy/AdvReac Type Severity Reaction Status Date / Time venlafaxine AdvReac Severe Suicidal Verified 08/23/22 17:52 ideation General Stated Complaint: Abd Prob MOJGAN: 3 Review of Systems Constitutional Constitutional: Reports as per HPI, Denies chills and Denies headache(s) ENT Ears, Nose, Mouth, and Throat: Denies headache(s) Cardiovascular Cardiovascular: Reports as per HPI, Denies chest pain and Denies dyspnea Respiratory Respiratory: Reports as per HPI and Denies dyspnea Gastrointestinal Gastrointestinal: Reports as per HPI Genitourinary Genitourinary: Denies system reviewed and no additional complaints, except as documented (patient denies any change in urinary habits) Musculoskeletal Musculoskeletal: Reports as per HPI and Denies back pain Integumentary/Breasts Skin/Breast: Reports as per HPI and Denies rash Neurologic Neurologic: Reports as per HPI and Denies headache(s) Exam Const General: cooperative, healthy appearing, comfortable, no acute distress, well developed and anxious Nutritional Appearance: average body habitus and well nourished Orientation: alert and awake [facility] Head: normal to inspection Mouth: moist mucous membranes Resp Effort & Inspection: normal respiratory effort, able to speak in complete sentences and no respiratory distress Auscultation: clear to auscultation bilaterally, no rales, no rhonchi and no wheezes Cardio Rate: regular rate Rhythm: regular rhythm Heart Sounds: S1 normal and S2 normal GI Inspection: normal to inspection Palpation: soft, no hepatosplenomegaly, not firm, no guarding, no pulsatile masses, not rigid and tender in the LUQ; not at McBurney's point, Vidales's sign negative and with no rebound tenderness Percussion: normal to percussion Auscultation: normal bowel sounds Back/Spine/Pelvis Back: no CVA tenderness Skin General skin exam: no rashes or lesions noted Trauma: no lacerations or abrasions Neuro General: patient alert and patient awake Cognition: normal cognition Speech: speech normal Gait: normal gait Course Vital Signs Vital signs: Vital Signs Temperature 36.9 C 07/28/24 11:46 Pulse 85 07/28/24 11:46 Respiratory Rate 20 07/28/24 11:46 Blood Pressure 142/90 H 07/28/24 11:46 Pulse Oximetry 100 07/28/24 11:46 Temperature 36.9 C 07/28/24 11:49 Pulse 85 07/28/24 11:49 Respiratory Rate 20 07/28/24 11:49 Blood Pressure 142/90 H 07/28/24 11:49 Blood Pressure Position Sitting 07/28/24 11:49 Pulse Oximetry 100 07/28/24 11:49 Oxygen Delivery Method Room Air 07/28/24 11:49 Oxygen Flow Rate 0 07/28/24 11:49 Medical Decision Making Patient is a pleasant 29 year old male with PMH of anxiety with panic attacks, ETOH abuse, presenting with c/c of LUQ pain. States that htis began about 4 days ago and has been progressively worsening. States around the same time he developed nausea and dry heaves but no vomiting. Also began having dry cough. Endorses fevers at home. No prior abdominal surgeries but he states that he had similar pain the past which was associted with ETOH- he is unclear on dx but concerned for pancreatitis based on his description. Reports decreased appetite. No flank or back pain. States he has chronic CP associated with anxiety but no change in this or increase recently, non-exertional. On exam, patient appears non-toxic, appears very anxious. He has normal cardiac and pulmonary exam. No CVA tenderness. He was pain with palpation in the left upper quadrant but no peritoneal findings. No pain elsewhere about the abdomen. No epigastric pain, right upper quadrant, negative Vidales sign. No rebound tenderness. With the patient's history, only concern for pancreatitis. This to consider other etiologies such as diverticulitis without this is likely with this 2, considered gastritis but with his alcohol history and previous similar pain, more concerned about pancreatitis at this time and feel it is appropriate to rule this out prior to going down that route, he has no indication to suggest cholecystitis, appendicitis or other surgical emergency. Will obtain baseline labs, imaging. Will also give 0.5 mg of Ativan based on his anxiety. He did not drive himself here. Will hydrate the patient as he reports he is not been able to stay hydrated the past few days. Labs reviewed, no leukocytosis. No significant abnormalities in the CMP. Lipase within normal limits. Mild elevation of AST below the chills and elevated specific gravity concerning for dehydration. Imaging was reviewed by radiologist, no acute abnormality. Discussed these findings with the patient. [facility] imaging and labs reassuring, will give Mylanta. He states he has had issue with ulcer in the past. Patient reports he does feel slightly improved after the p.o. Mylanta. Will prescribe Protonix. Encouraged supportive care. He has an upcoming appointment with GI which I advised that he keep and discuss this issue as well. Return precautions were discussed. Encourage follow-up with primary care. All his questions and concerns were addressed and he is in agreement this plan This documentation was generated using Teliportme dictation system, please disregard any oddities of phrase or misspellings. Quality:SDOH Health Related Social Needs: No Data to Display [facility] All Active Problems (Updated 07/28/24 @ 13:35 by COREEN Alonso) Abdominal pain (Acute) Alcohol use disorder (Chronic) [facility] 05/17-06/06/2018 Anxiety disorder (Chronic 07/30/12) With panic attacks; citalopram and bupropion made things worse; venlafaxine caused suicidal ideation Recurrent major depression (Chronic 07/30/12) Tobacco use disorder (Chronic 09/08/16) Surgical History History of surgery on wrist Family History Mother No problems noted. Father Alcohol abuse Sister No problems noted. Brother No problems noted. Brother No problems noted. 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
[2024-07-28 12:17] LABS: Abs Immature Grans 0.03 10^3/uL (0.0-0.06); Absolute Basophil Count 0.07 10^3/uL (0.0-0.2); Absolute Eosinophil Count 0.11 10^3/uL (0.0-0.7); Absolute Lymphocyte Count 1.03 10^3/uL (1.2-3.4); Absolute Monocyte Count 0.67 10^3/uL (0.1-0.8); Absolute Neutrophil Count 3.46 10^3/uL (1.2-6.7); Basophils % 1.3 %; HGB 16.3 g/dL (13.5-17.5); Immature Grans % 0.6 %; Lymphocytes % 19.2 %; MCH 28.9 pg (27.0-33.0); MCHC 33.3 % (32.0-36.0); MCV 87 fL (80-95); MPV 10.5 fL (8.0-11.0); Monocytes % 12.5 %; Neutrophils % 64.4 %; Platelet Count 247 10^3/uL (130-400); RBC 5.64 10^6/uL (4.36-5.78); RDW-SD 41.6 fL; WBC 5.37 10^3/uL (4.4-10.8)
[2024-07-28] MEDS: LORazepam 2 MG/ML VIAL 0.5 MG IVP (12:24)
[2024-07-28] MEDS: Normal Saline 1,000 ML 1000 ML IV (12:24)
[2024-07-28] MEDS: Omnipaque 350 MG/ML 100 ML BTL IJ (12:39)
[2024-07-28] MEDS: Normal Saline - Diluent 50 ML VIAL IJ (12:40)
[2024-07-28 12:42] LABS: ALT 69 U/L (16-63); AST 31 U/L (15-37); Albumin 4.3 g/dL (3.4-5.0); Alkaline Phosphatase 113 U/L (46-116); Anion Gap 8.9 mmol/L (3-11); BUN 10 mg/dL (7-18); Bilirubin, Total 0.5 mg/dL (0.2-1.0); CO2 29.1 mmol/L (21.0-32.0); CREATININE 1.1 mg/dL (0.70-1.30); Calcium 9.3 mg/dL (8.5-10.1); Chloride 104 mmol/L (98-107); Estimated GFR 92.04 (mL/min/1.73m2); Glucose 93 mg/dL (74-106); Lipase 36 U/L (<78); Magnesium 1.8 mg/dL; Sodium 142 mmol/L (136-145); Total Protein 7.9 g/dL (6.4-8.2)
[2024-07-28 13:00] LABS: Bilirubin Negative (Negative); Blood Negative (Negative); Clarity Sl Cloudy (Clear); Glucose Negative (Negative); Ketones Negative (Negative); Leukocyte Esterase Negative (Negative); Nitrite Negative (Negative); Specific Gravity >= 1.030 (1.005-1.025); Urobilinogen 0.2 mg/dL (Up to 0.2); pH 5.5 (5-8)
[2024-07-28] MEDS: Mylanta Suspension 30 ML CUP PO (13:14)
[2024-07-28] MEDS: LORazepam 0.5 MG TAB PO (13:46)
== END 2024-07-28 13:47 | disposition home or self-care (01) ==
PROVIDERS: Emergency Provider Physician Assistant; PCP Nurse Practitioner Family
DX: R10.12 Left upper quadrant pain (principal); F41.9 Anxiety disorder, unspecified
CPT/HCPCS: 36415; 80053; 83690; 96361; 96374; 99285; 74177; 81003; 83735; 85025; 99283; J2060; J3490

== ENCOUNTER 2025-01-21 08:53 | Emergency (ER) | payer MEDICAID, SELFPAY ==
[2025-01-21] VITALS (7 sets, daily range): BP systolic 125–137; BP diastolic 69–87; PULSE 46–92; RESP 10–21; TEMP 36.6; O2SAT 99–100
--- NOTE | 2025-01-21 08:45 | RT.EKG_ITS ---
APPROVED REPORT Exam: Resting ECG Reason for Exam: palpitations Patient Location: E HR:85 bpm ECG Measurements Heart Rate 85 AXIS MT 179 P 87 QRSd 87 QRS 87 QT 390 T 60 QTc 463 Conclusion Sinus rhythm...normal P axis, V-rate 60- 99 Probable left atrial enlargement...P >50mS, <-0.10mV V1 No Occlusion VA
--- NOTE | 2025-01-21 09:00 | DI.RAD_ITS ---
Exam(s) XR CHEST 2V PA LATERAL EXAM: XR CHEST 2V PA LATERAL CLINICAL HISTORY: palpitations; SOB TECHNIQUE: 2D digital imaging was performed. Two views. COMPARISON: CR CHEST 2 VIEWS PA,LAT from 05/25/2012 FINDINGS: HEART: Normal size. Aorta: Not dilated. PULMONARY VASCULATURE: Normal. MEDIASTINUM: Unremarkable. LUNGS: Clear. PLEURAL SPACE: No pleural effusion or pneumothorax. BONE:Unremarkable for age. SOFT TISSUES: Unremarkable. IMPRESSION: No acute abnormality. The preliminary [facility] report was reviewed. DATA REPOSITORY: RADIATION DOSE DELIVERED:
--- NOTE | 2025-01-21 09:06 | W.ED.GENAD ---
Discharge Plan Disposition Patient Disposition: Home Condition: Stable Discharge Details Clinical Impression: Palpitations Primary Care Provider: Laxmi Oakes ED Provider: Raymundo Ramires Home Meds and New Rx's Prescriptions: Continued hydroxyzine HCl 25 mg tablet 25 - 50 mg PO QID PRN (Reason: anxiety) Qty: 60 0RF disulfiram 500 mg tablet 500 mg PO DAILY sertraline 100 mg tablet 150 mg PO DAILY lorazepam 0.5 mg tablet 0.5 mg PO DAILY PRN (Reason: anxiety) Patient Comments: TAKE ONE TABLET BY MOUTH EVERY DAY FOR ANXIETY. USE SPARINGLY Discharge Instructions Instructions: Palpitations ED Additional Instructions: You received in the emergency department for your palpitations, EKG is normal and your workup is completely negative, these intermittent palpitations could be due to your recent viral syndrome or anxiety but if they become more frequent or concerning should follow-up with your primary care provider for a referral to cardiology to obtain a ZIO heart monitor patch. Please return for any worsening shortness of breath or chest pain or any other emergent concerns. Referrals: Laxmi Oakes [Primary Care Provider, Medicine] Discharge Data Discharge Date/Time-TO BE ENTERED AT DEPARTURE: 01/21/25 10:36 HPI General Date/Time Provider Initiated Documentation: 01/21/25 09:05. HPI Narrative: 29 year-old male presents to ED today by POV/ambulating with a chief complaint of palpitations, possible anxiety with onset yesterday. Quality described as not painful, just having palpitations frequently- every couple minutes, no radiation to chest pain, shortness of breath, dizziness, sweating, cough, fever. Severity is described as mild. Palliating factors include nothing specific attempted. Provoking factors include nothing specific. Patient not anticoagulated. Related Data Home Medications ?Medication ?Instructions ?Recorded ?Confirmed hydroxyzine HCl 25 mg tablet 25 - 50 mg (1 - 2 x 25 mg) PO QID 08/20/18 01/21/25 PRN anxiety #60 tab-caps lorazepam 0.5 mg tablet 0.5 mg PO DAILY PRN anxiety 07/28/24 01/21/25 disulfiram 500 mg tablet 500 mg PO DAILY 08/04/24 01/21/25 sertraline 100 mg tablet 150 mg PO DAILY 08/04/24 01/21/25 Previous Rx's ?Medication ?Instructions ?Recorded hydroxyzine HCl 25 mg tablet 25 - 50 mg (1 - 2 x 25 mg) PO QID 08/20/18 PRN anxiety #60 tab-caps Allergies Allergy/AdvReac Type Severity Reaction Status Date / Time venlafaxine AdvReac Severe Suicidal Verified 01/21/25 09:02 ideation General Stated Complaint: Palpitatns MOJGAN: 3 Review of Systems All systems reviewed & are unremarkable except as noted in HPI and below Exam Narrative Exam Narrative: GENERAL APPEARANCE: Well-nourished, non-toxic, awake and alert, atraumatic, no acute distress. SKIN: Warm, pink, dry, intact, without rashes/lesions/ulcerations. HEAD: Normocephalic, atraumatic, normal hair distribution for gender/age. EYES: Normal conjunctiva, no exudates on lids/lashes. ENT: Nares patent, no circumoral cyanosis, no facial swelling NECK: Supple, trachea midline, painless cervical ROM. LUNGS/CHEST: Lungs CTA bilaterally, non-labored respirations, normal A/P diameter, symmetrical expansion, no chest wall deformity HEART (CV/PV): Regular rate and rhythm without murmur, no peripheral edema, no JVD. ABDOMEN: Soft, non-distended, no guarding. MSK: Normal ROM, no swelling/deformity to bilateral UEs or LEs, moving all extremities without weakness, no cyanosis, spine midline without tenderness, normal curvature. NEURO: Mental Status AAOx4 - alert to person, place, time, events No facial droop, no forehead involvement. Motor: No focal weakness - strength 5/5 in bilateral UEs and LEs, proximal and distal, symmetric. Sensory: sensation intact to light touch globally. Gait normal: patient ambulated without ataxia into ED room. PSYCH: euthymic, cooperative, pleasant, appropriate speech Course Vital Signs Vital signs: Vital Signs Temperature 36.6 C 01/21/25 08:59 Pulse 92 H 01/21/25 08:59 Respiratory Rate 10 L 01/21/25 08:59 Blood Pressure 136/80 01/21/25 08:59 Pulse Oximetry 100 01/21/25 08:59 Temperature 36.6 C 01/21/25 08:59 Temperature Source Oral 01/21/25 08:59 Pulse 92 H 01/21/25 08:59 Respiratory Rate 10 L 01/21/25 08:59 Blood Pressure 136/80 01/21/25 08:59 Blood Pressure Position Supine 01/21/25 08:59 Pulse Oximetry 100 01/21/25 08:59 Oxygen Delivery Method Room Air 01/21/25 08:59 Oxygen Flow Rate 0 01/21/25 08:59 Medical Decision Making This dictation utilizes [id number] dictation software and may contain unedited grammatical errors. 29 year-old male presents to ED today by POV/ambulating with a chief complaint of palpitations, possible anxiety with onset yesterday. Quality described as not painful, just having palpitations frequently- every couple minutes, no radiation to chest pain, shortness of breath, dizziness, sweating, cough, fever. Severity is described as mild. Palliating factors include nothing specific attempted. Provoking factors include nothing specific. Patients' medical history: Anxiety disorder, alcohol use disorder. Family and social history: Denies active drug or alcohol use. Pertinent exam findings / vital signs include benign cardiopulmonary exam, vital stable, benign abdomen, neuro intact. Differential / pathologies of concern include palpitations, anxiety, ACS. Diagnostic studies of: - CBC, CMP, troponin, magnesium, lipase, chest x-ray, EKG. - CBC benign - CMP has no actionable abnormality - Troponin negative with reliable onset - Magnesium within normal limits - Lipase negative - Chest x-ray without acute pathology - EKG normal sinus rhythm without any PVCs or other arrhythmia, no signs of STEMI or ischemic changes Interventions of: - 0.5mg ativan PO. ED Course/Assessment/Plan: 29-year-old male endorses frequent palpitations over the past 2 days, his workup is negative he has history of anxiety, his EKG is reassuring, counseled patient at he is to follow-up with his primary care provider but strict return criteria for any further arrhythmias especially sustained ones, his heart score is low, he has no history of sudden cardiac at a young age in his family. Findings not consistent with ACS, chest pain, electrolyte abnormality. Disposition of palpitations. Patient verbalized understanding of the plan and return to ED criteria and engaged in shared decision making. Medical Records Medical records reviewed: Yes I reviewed the patient's medical records. Imaging Data Radiologic Study: Attestation: I personally reviewed and interpreted this imaging study as follows: Imaging: X-Ray Radiologist's impression: Exam: XR Chest Exam date and time: 01/21/2025 9:40 AM Age: 29 years old Clinical indication: Shortness of breath and other: Palpitations; SOB TECHNIQUE: Imaging protocol: Radiologic exam of the chest. Views: 2 views. COMPARISON: CT ABDOMEN PELVIS W 07/28/2024 12:38 PM FINDINGS: Lungs: No focal consolidation seen. Pleural spaces: No large pleural effusion seen. Heart/Mediastinum: No cardiomegaly. Bones/joints: No acute abnormality. IMPRESSION: No acute findings to explain reported symptoms. Dictated and Authenticated by: Samantha Kumar MD. Lab Data Lab results reviewed: Yes I reviewed the patient's lab results. Labs: Laboratory Tests Range/Units 01/21/25 09:20 WBC (4.4-10.8) 10^3/uL 7.20 RBC (4.36-5.78) 10^6/uL 4.82 Hgb (13.5-17.5) g/dL 13.7 Hct (40.0-50.0) % 41.0 MCV (80-95) fL 85 MCH (27.0-33.0) pg 28.4 MCHC (32.0-36.0) % 33.4 RDW (11.8-14.1) % 14.3 H Plt Count (130-400) 10^3/uL 291 MPV (8.0-11.0) fL 10.5 Immature Gran % % 0.6 Neutrophils % % 61.8 Lymphocytes % % 26.5 Monocytes % % 7.4 Eosinophils % % 2.9 Basophils % % 0.8 Nucleated RBC % (0.0-0.3) % 0.0 Absolute Neutrophils (1.2-6.7) 10^3/uL 4.45 Absolute Lymphocytes (1.2-3.4) 10^3/uL 1.91 Absolute Monocytes (0.1-0.8) 10^3/uL 0.53 Absolute Eosinophils (0.0-0.7) 10^3/uL 0.21 Absolute Basophils (0.0-0.2) 10^3/uL 0.06 Sodium (136-145) mmol/L 139 Potassium (3.5-5.1) mmol/L 4.0 Chloride (98-107) mmol/L 101 Carbon Dioxide (21.0-32.0) mmol/L 28.9 Anion Gap (3-11) mmol/L 9.1 BUN (7-18) mg/dL 11 Creatinine (0.70-1.30) mg/dL 1.1 Est GFR (CKD-EPI 2020) (mL/min/1.73m2) 92.04 Glucose (74-106) mg/dL 108 H Calcium (8.5-10.1) mg/dL 8.9 Magnesium (1.8-2.4) mg/dL 2.0 Total Bilirubin (0.2-1.0) mg/dL 0.8 AST (15-37) U/L 20 ALT (16-63) U/L 36 Alkaline Phosphatase (46-116) U/L 96 Troponin I (<or=76) ng/L < 4 Total Protein (6.4-8.2) g/dL 7.2 Albumin (3.4-5.0) g/dL 4.2 Lipase (<78) U/L 26 PFSH All Active Problems (Updated 01/21/25 @ 10:08 by COREEN Leon) Palpitations (Acute) Alcohol use disorder (Chronic) [facility] 05/17-06/06/2018 Anxiety disorder (Chronic 07/30/12) With panic attacks; citalopram and bupropion made things worse; venlafaxine caused suicidal ideation Recurrent major depression (Chronic 07/30/12) Tobacco use disorder (Chronic 09/08/16) Medical History (Updated 01/21/25 @ 10:08 by COREEN Leon) Chronic diarrhea Surgical History History of surgery on wrist Family History Mother No problems noted. Father Alcohol abuse Sister No problems noted. Brother No problems noted. Brother No problems noted. 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
[2025-01-21 09:41] LABS: Abs Immature Grans 0.04 10^3/uL (0.0-0.06); HCT 41.0 % (40.0-50.0); HGB 13.7 g/dL (13.5-17.5); Immature Grans % 0.6 %; MCH 28.4 pg (27.0-33.0); MCHC 33.4 % (32.0-36.0); MCV 85 fL (80-95); MPV 10.5 fL (8.0-11.0); Platelet Count 291 10^3/uL (130-400); RBC 4.82 10^6/uL (4.36-5.78); RDW 14.3 % (11.8-14.1); RDW-SD 44.2 fL; WBC 7.20 10^3/uL (4.4-10.8)
--- NOTE | 2025-01-21 09:42 | DI.[facility]_ITS ---
PROCEDURE INFORMATION: Exam: XR Chest Exam date and time: 01/21/2025 9:40 AM Age: 29 years old Clinical indication: Shortness of breath and other: Palpitations; SOB TECHNIQUE: Imaging protocol: Radiologic exam of the chest. Views: 2 views. COMPARISON: CT ABDOMEN PELVIS W 07/28/2024 12:38 PM FINDINGS: Lungs: No focal consolidation seen. Pleural spaces: No large pleural effusion seen. Heart/Mediastinum: No cardiomegaly. Bones/joints: No acute abnormality. IMPRESSION: No acute findings to explain reported symptoms. Dictated and Authenticated by: Samantha Kumar MD. Orderin Keyla Fonseca MD
[2025-01-21 09:55] LABS: ALT 36 U/L (16-63); AST 20 U/L (15-37); Albumin 4.2 g/dL (3.4-5.0); Alkaline Phosphatase 96 U/L (46-116); Anion Gap 9.1 mmol/L (3-11); BUN 11 mg/dL (7-18); Bilirubin, Total 0.8 mg/dL (0.2-1.0); CO2 28.9 mmol/L (21.0-32.0); Calcium 8.9 mg/dL (8.5-10.1); Chloride 101 mmol/L (98-107); Estimated GFR 92.04 (mL/min/1.73m2); Glucose 108 mg/dL (74-106); Lipase 26 U/L (<78); Potassium 4.0 mmol/L (3.5-5.1); Sodium 139 mmol/L (136-145); Total Protein 7.2 g/dL (6.4-8.2); Troponin I < 4 ng/L (<or=76)
[2025-01-21 09:58] LABS: Magnesium 2.0 mg/dL (1.8-2.4)
[2025-01-21] MEDS: LORazepam 0.5 MG TAB PO (10:05)
== END 2025-01-21 10:36 | disposition home or self-care (01) ==
PROVIDERS: Emergency Provider Physician Assistant; PCP Nurse Practitioner Family
DX: R00.2 Palpitations (principal); R06.02 Shortness of breath
CPT/HCPCS: 99285; 99283; 80053; 83690; 93005; 71046; 83735; 84484; 85025; 93010

== ENCOUNTER 2025-02-21 22:13 | Emergency (ER) | payer MEDICAID, SELFPAY ==
[2025-02-21 22:15] VITALS: BP 162/95; PULSE 88; RESP 18; TEMP 37; O2SAT 100
--- NOTE | 2025-02-21 22:19 | DI.RAD_ITS ---
Exam(s) XR THUMB LT EXAM: XR THUMB LT CLINICAL HISTORY: tenderness post crushing injury, IP, tuft, and mcp. TECHNIQUE: 2D digital imaging was performed. COMPARISON: No exams were available for comparison FINDINGS: 3 views No evidence of acute fracture or dislocation no abnormal soft tissue densities. No radiopaque foreign bodies. No osseous lesions. IMPRESSION: No acute osseous findings. DATA REPOSITORY: RADIATION DOSE DELIVERED:
[2025-02-21] MEDS: Acetaminophen 500 MG TAB PO (22:47)
--- NOTE | 2025-02-21 23:04 | W.ED.GENAD ---
Discharge Plan Disposition Patient Disposition: Home Discharge Details Clinical Impression: Finger contusion Primary Care Provider: Laxmi Oakes ED Provider: Kirsten Barahona Home Meds and New Rx's Prescriptions: Continued hydroxyzine HCl 25 mg tablet 25 - 50 mg PO QID PRN (Reason: anxiety) Qty: 60 0RF disulfiram 500 mg tablet 500 mg PO DAILY sertraline 100 mg tablet 150 mg PO DAILY lorazepam 0.5 mg tablet 0.5 mg PO DAILY PRN (Reason: anxiety) Patient Comments: TAKE ONE TABLET BY MOUTH EVERY DAY FOR ANXIETY. USE SPARINGLY Discharge Instructions Instructions: Common Finger Injuries (DC) Additional Instructions: Take Motrin and Tylenol as needed for pain Apply ice Rest your finger Please return with worsening pain persistent pain greater than 1 week or should any new concerns arise Referrals: Laxmi Oakes [Primary Care Provider, Medicine] Discharge Data Discharge Date/Time-TO BE ENTERED AT DEPARTURE: 02/21/25 23:04 HPI General Date/Time Provider Initiated Documentation: 02/21/25 22:20. HPI Narrative: This 29-year-old male presents with contusion to his left first digit today at work. He denies any additional injuries. He states his tetanus is up-to-date. Pain exacerbated with movement. Related Data Home Medications ?Medication ?Instructions ?Recorded ?Confirmed hydroxyzine HCl 25 mg tablet 25 - 50 mg (1 - 2 x 25 mg) PO QID 08/20/18 02/21/25 PRN anxiety #60 tab-caps lorazepam 0.5 mg tablet 0.5 mg PO DAILY PRN anxiety 07/28/24 02/21/25 disulfiram 500 mg tablet 500 mg PO DAILY 08/04/24 02/21/25 sertraline 100 mg tablet 150 mg PO DAILY 08/04/24 02/21/25 Previous Rx's ?Medication ?Instructions ?Recorded hydroxyzine HCl 25 mg tablet 25 - 50 mg (1 - 2 x 25 mg) PO QID 08/20/18 PRN anxiety #60 tab-caps Allergies Allergy/AdvReac Type Severity Reaction Status Date / Time venlafaxine AdvReac Severe Suicidal Verified 02/21/25 22:19 ideation General Stated Complaint: Orthopedic MOJGAN: 3 Exam Narrative Exam Narrative: Left thumb with bruising tenderness at IP joint no tenderness to hand, cap refill intact sensation intact no tenderness to wrist Course Vital Signs Vital signs: Vital Signs Temperature 37.0 C 02/21/25 22:15 Pulse 88 02/21/25 22:15 Respiratory Rate 18 02/21/25 22:15 Blood Pressure 162/95 H 02/21/25 22:15 Pulse Oximetry 100 02/21/25 22:15 Temperature 37.0 C 02/21/25 22:15 Temperature Source Temporal Artery Scan 02/21/25 22:15 Pulse 88 02/21/25 22:15 Respiratory Rate 18 02/21/25 22:15 Blood Pressure 162/95 H 02/21/25 22:15 Blood Pressure Position Sitting 02/21/25 22:15 Pulse Oximetry 100 02/21/25 22:15 Oxygen Delivery Method Room Air 02/21/25 22:15 Oxygen Flow Rate 0 02/21/25 22:15 Pain Level 9 02/21/25 22:47 Medical Decision Making Results: X-ray does not show evidence of acute abnormality per my interpretation pending radiology overview Assessment and plan: Patient placed in a splint for comfort encouraged to take Motrin and Tylenol and to return earlier or be reevaluated with persistent symptoms PFSH All Active Problems (Updated 02/21/25 @ 22:56 by COREEN Briggs) Finger contusion (Acute) Alcohol use disorder (Chronic) [facility] 05/17-06/06/2018 Anxiety disorder (Chronic 07/30/12) With panic attacks; citalopram and bupropion made things worse; venlafaxine caused suicidal ideation Recurrent major depression (Chronic 07/30/12) Tobacco use disorder (Chronic 09/08/16) Medical History (Updated 02/21/25 @ 22:56 by COREEN Briggs) Chronic diarrhea Surgical History History of surgery on wrist Family History Mother No problems noted. Father Alcohol abuse Sister No problems noted. Brother No problems noted. Brother No problems noted. 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
--- NOTE | 2025-02-21 23:12 | DI.VRAD_ITS ---
PROCEDURE INFORMATION: Exam: XR Left Finger(s) Exam date and time: 02/21/2025 10:34 PM Age: 29 years old Clinical indication: Pain and injury or trauma; Other: Tenderness post crushing injury, ip, tuft, and mcp; Left; Thumb; Finger(s) TECHNIQUE: Imaging protocol: Radiologic exam of the left fingers. Views: Minimum 2 views. COMPARISON: No relevant prior studies available. FINDINGS: Bones/joints: Normal. Soft tissues: Normal. IMPRESSION: No acute findings. Dictated and Authenticated by: Stuart Murphy MD. Orderin Jun Curtis MD
== END 2025-02-21 23:04 | disposition home or self-care (01) ==
PROVIDERS: Emergency Provider Physician Assistant; PCP Nurse Practitioner Family
DX: S60.022A Contusion of left index finger without damage to nail, initial encounter (principal); X58.XXXA Exposure to other specified factors, initial encounter
CPT/HCPCS: 99283 ×2; 73140